=== PATIENT | female | born 1995 | race Caucasian/White ===

== ENCOUNTER 2021-02-04 20:15 | Emergency (ER) | payer OTHER ==
[~2021-02-04] VITALS: Ht 162.6 cm; Wt 63.7 kg
[2021-02-04 20:19] VITALS: BP 128/87
--- NOTE | 2021-02-04 20:29 | NUR ---
THIS IS A 25F THAT COMES IN FOR LOW BACK PAIN, PT REPORTS HAVING OUTPATIENT CARE AND HAS HX OF SLIPPED DISCS IN LOWER BACK. SHE WAS MOVING AND FELT A POP TONIGHT WITH SHARP SUDDEN PAIN. PT AMBULATORY UPON ARRIVAL SPOUSE AT BEDSIDE STEWART, NO NEEDS CONNECTED TO PULSE OX.
[2021-02-04] MEDS ORDERED: HYDROcodone/APAP 5/325 TABLET PO ONE (21:00)
[2021-02-04] MEDS ORDERED: METHOCARBAMOL 750 MG TABLET PO ONE (21:00)
[2021-02-04] MEDS ORDERED: KETOROLAC 30 MG/1 ML IM ONE (21:00)
[2021-02-04] MEDS ORDERED: KETOROLAC 30 MG/1 ML ONE (21:01)
[2021-02-04] MEDS ORDERED: METHOCARBAMOL 750 MG TABLET ONE (21:01)
[2021-02-04] MEDS ORDERED: HYDROcodone/APAP 5/325 TABLET ONE (21:02)
--- NOTE | 2021-02-04 21:06 | NUR ---
GAVE PT MEDICATIONS, PT RESTING ON GURNEY, DENIES ANY NEEDS AT THIS TIME
--- NOTE | 2021-02-04 21:29 | NUR ---
Patient/Caregiver given discharge instructions and they have confirmed that they understand the instructions. Patient ambulatory with steady gait.
== END 2021-02-04 21:40 | disposition home or self-care (01) ==
LOC: ED 21:38
DX: S39.012A Strain of muscle, fascia and tendon of lower back, initial encounter (principal); X58.XXXA Exposure to other specified factors, initial encounter; Y93.89 Activity, other specified; Y92.89 Other specified places as the place of occurrence of the external cause; Y99.8 Other external cause status
CPT/HCPCS: 96372; 99283; J1885

== ENCOUNTER 2021-03-10 01:15 | Emergency (ER) | payer OTHER ==
[~2021-03-10] VITALS: Ht 162.6 cm; Wt 63.1 kg
--- NOTE | 2021-03-10 01:31 | NUR ---
pt present to ed after a fall. pt hit her forehea. pt A&Ox4, and has a laceration above her right eye. pt on gurney, resting comfortably.
[2021-03-10] MEDS ORDERED: LIDOCAINE-MPF 1%, 5ML ONE (01:51)
[2021-03-10] MEDS ORDERED: ONDANSETRON ODT 4 MG ONE (01:51)
[2021-03-10] MEDS ORDERED: LIDOCAINE-MPF 1%, 5ML INFIL ONE (02:00)
[2021-03-10] MEDS ORDERED: ONDANSETRON ODT 4 MG PO ONE (02:00)
--- NOTE | 2021-03-10 02:14 | NUR ---
pt back from ct. zofran given, continues to be nauseated.
--- NOTE | 2021-03-10 03:20 | NUR ---
ERP AT BEDSIDE, SUTURES BEING PLACED.
[2021-03-10] MEDS ORDERED: BACITRACIN ZINC OINT 500U/GM, 0.9 GM ONE (03:42)
--- NOTE | 2021-03-10 03:47 | NUR ---
BACITRACIN AND BANDAID TO COVER SUTURES.
[2021-03-10 03:50] VITALS: BP 116/68
--- NOTE | 2021-03-10 04:21 | NUR ---
Patient given discharge instructions and they have confirmed that they understand the instructions. Patient ambulatory with steady gait.
== END 2021-03-10 04:23 | disposition home or self-care (01) ==
LOC: ED 04:00
DX: S01.81XA Laceration without foreign body of other part of head, initial encounter (principal); F10.120 Alcohol abuse with intoxication, uncomplicated; W01.0XXA Fall on same level from slipping, tripping and stumbling without subsequent striking against object, initial encounter; Y93.89 Activity, other specified; Y92.59 Other trade areas as the place of occurrence of the external cause; Y99.8 Other external cause status; Y90.0 Blood alcohol level of less than 20 mg/100 ml
CPT/HCPCS: 12052; 70450; 99284; Q0162